=== PATIENT | male | born 1955 | race Caucasian/White ===

== ENCOUNTER 2020-01-12 02:19 | Outpatient (RCR) | payer MEDICARE, MEDICAID, SELFPAY ==
[2020-01-12] VITALS (10 sets, daily range): BP systolic 126–162; BP diastolic 79–101; PULSE 59–89; RESP 18–19; TEMP 36–36.8; O2SAT 95–98
[2020-01-12] MEDS: diphenhydrAMINE 25 MG CAP PO (08:20)
[2020-01-12] MEDS: Acetaminophen 325 MG TAB 650 MG PO (08:20)
[2020-01-12] MEDS: Normal Saline Flush 10 ML SYR IVP (08:48)
== END 2020-01-30 23:59 | disposition home or self-care (01) ==
LOC: INF 02:19
PROVIDERS: PCP Family Medicine; Visit Provider Internal Medicine
DX: L12.0 Bullous pemphigoid (principal)
CPT/HCPCS: 96365; 96366; J9312

== ENCOUNTER 2020-04-06 01:35 | Outpatient (RCR) | payer MEDICARE, MEDICAID, SELFPAY ==
[2020-04-06] VITALS (8 sets, daily range): BP systolic 146–170; BP diastolic 87–120; PULSE 60–115; RESP 18–20; TEMP 36.3–36.9; O2SAT 94–96
[2020-04-06] MEDS: Acetaminophen 325 MG TAB 650 MG PO (08:51)
[2020-04-06] MEDS: Normal Saline Flush 10 ML SYR IVP (08:51)
[2020-04-06] MEDS: diphenhydrAMINE 25 MG CAP PO (08:51)
== END 2020-05-01 23:59 | disposition home or self-care (01) ==
LOC: INF 01:35
PROVIDERS: PCP Family Medicine; Visit Provider Internal Medicine
DX: L13.8 Other specified bullous disorders (principal)
CPT/HCPCS: 96365; 96366; J9312

== ENCOUNTER 2020-10-19 02:19 | Outpatient (RCR) | payer MEDICARE, MEDICAID, SELFPAY ==
[2020-10-19] VITALS (7 sets, daily range): BP systolic 135–174; BP diastolic 62–102; PULSE 67–110; RESP 17–20; TEMP 36.6–36.7; O2SAT 97–100
[2020-10-19] MEDS: Normal Saline Flush 10 ML SYR IVP (08:59)
== END 2020-10-29 23:59 | disposition home or self-care (01) ==
LOC: INF 02:19
PROVIDERS: PCP Family Medicine; Visit Provider Family Medicine
DX: L12.0 Bullous pemphigoid (principal)
CPT/HCPCS: 96365; 96366; J9312